=== PATIENT | female | born 1945 | race Caucasian/White ===

== ENCOUNTER → 2017-12-13 | Outpatient (REF) | payer MEDICARE, BC ==
[2017-12-14 16:00] LABS: IMMEDIATE SPIN CROSSMATCH 1 2
== END ==
LOC: M LAB REF 13:36
DX: C49.9 Malignant neoplasm of connective and soft tissue, unspecified (principal)
CPT/HCPCS: 86900

== ENCOUNTER 2017-12-14 12:49 | Outpatient (CLI) | payer MEDICARE, BC ==
[2017-12-14] MEDS: ACETAMINOPHEN TAB 650MG DOSE (2X325MG) PO (13:56)
[2017-12-14] MEDS: diphenhydrAMINE 25 MG CAP PO (13:56)
[2017-12-14] MEDS: SODIUM CHLORIDE 0.9% INJ 10 ML SYR IV (17:49)
== END 2017-12-14 18:15 | disposition home or self-care (01) ==
LOC: M INFU 12:49
DX: C49.9 Malignant neoplasm of connective and soft tissue, unspecified (principal); D64.9 Anemia, unspecified; I10 Essential (primary) hypertension; E11.9 Type 2 diabetes mellitus without complications; F32.9 Major depressive disorder, single episode, unspecified; M19.049 Primary osteoarthritis, unspecified hand; Z79.899 Other long term (current) drug therapy; Z88.8 Allergy status to other drugs, medicaments and biological substances; Z87.891 Personal history of nicotine dependence
CPT/HCPCS: 36430

== ENCOUNTER → 2018-01-10 | Outpatient (REF) | payer MEDICARE, BC ==
[2018-01-10 16:13] LABS: FREE T4 1.13 NG/DL (0.76-1.46)
== END ==
LOC: M LAB REF 14:48
DX: Z51.81 Encounter for therapeutic drug level monitoring (principal); Z79.899 Other long term (current) drug therapy
CPT/HCPCS: 84443

== ENCOUNTER → 2018-01-31 | Outpatient (REF) | payer MEDICARE, BC | LOC: M LAB REF 18:12 | DX: Z79.899 Other long term (current) drug therapy (principal) | CPT/HCPCS: 84443 ==

== ENCOUNTER → 2018-02-05 | Outpatient (REF) | payer MEDICARE, BC ==
[2018-02-05 14:12] LABS: INR 1.07; PROTHROMBIN TIME 14.1 SECONDS (12.4-14.5)
== END ==
LOC: M LAB REF 13:32
DX: Z01.812 Encounter for preprocedural laboratory examination (principal); Z79.01 Long term (current) use of anticoagulants
CPT/HCPCS: 85610

== ENCOUNTER → 2018-02-13 | Outpatient (CLI) | payer MEDICARE, BC ==
[~2018-02-13] MED LIST: LIDOCAINE 1% MDV 20ML VIAL As Ordered
== END ==
LOC: M RADPRO 12:36
DX: C77.0 Secondary and unspecified malignant neoplasm of lymph nodes of head, face and neck (principal); R59.0 Localized enlarged lymph nodes; Z79.82 Long term (current) use of aspirin; Z79.4 Long term (current) use of insulin
CPT/HCPCS: 38505

== ENCOUNTER → 2018-02-21 | Outpatient (REF) | payer MEDICARE, BC ==
[2018-02-22 14:53] LABS: IMMEDIATE SPIN CROSSMATCH 1 2
== END ==
LOC: M LAB REF 16:26
DX: D64.9 Anemia, unspecified (principal)
CPT/HCPCS: 86900

== ENCOUNTER 2018-02-22 10:10 | Outpatient (CLI) | payer MEDICARE, BC ==
[2018-02-22] MEDS: ACETAMINOPHEN TAB 650MG DOSE (2X325MG) PO (12:09)
[2018-02-22] MEDS: diphenhydrAMINE 25 MG CAP PO (12:10)
[2018-02-22] MEDS ORDERED: SODIUM CHLORIDE 0.9% INJ 10 ML SYR IV (17:15)
[2018-02-23] MEDS ORDERED: SODIUM CHLORIDE 0.9% INJ 10 ML SYR IV (09:00)
== END 2018-02-22 18:30 | disposition home or self-care (01) ==
LOC: M OPCLI5PR 10:10 → M MS5PR 10:16 → M OPCLI5PR 18:30
DX: D64.81 Anemia due to antineoplastic chemotherapy (principal); Z79.82 Long term (current) use of aspirin; Z79.4 Long term (current) use of insulin; Z79.899 Other long term (current) drug therapy
CPT/HCPCS: 36430

== ENCOUNTER → 2018-03-14 | Outpatient (REF) | payer MEDICARE, BC ==
[2018-03-14 19:00] LABS: FREE T4 1.28 NG/DL (0.76-1.46)
== END ==
LOC: M LAB REF 17:25
DX: C49.9 Malignant neoplasm of connective and soft tissue, unspecified (principal); C78.02 Secondary malignant neoplasm of left lung; C34.91 Malignant neoplasm of unspecified part of right bronchus or lung; Z79.899 Other long term (current) drug therapy
CPT/HCPCS: 84443

== ENCOUNTER → 2018-03-28 | Outpatient (REF) | payer MEDICARE, BC ==
[2018-03-28 18:57] LABS: FREE T4 1.23 NG/DL (0.76-1.46); IRON (FE) 29 UG/DL (50-170); PERCENT SATURATION 20.7 % (13.2-45.0); TOTAL IRON BINDING CAPACITY 140 UG/DL (250-450)
[2018-03-28 19:21] LABS: FERRITIN 3222 NG/ML (8-252)
[2018-03-28 19:24] LABS: SLIDE REVIEW Report; SOURCE PERIPHERAL SMEAR
[2018-03-29 17:32] LABS: IMMEDIATE SPIN CROSSMATCH 1 2
== END ==
LOC: M LAB REF 16:26
DX: Z51.81 Encounter for therapeutic drug level monitoring (principal); Z79.899 Other long term (current) drug therapy; C49.9 Malignant neoplasm of connective and soft tissue, unspecified; C78.02 Secondary malignant neoplasm of left lung; C34.91 Malignant neoplasm of unspecified part of right bronchus or lung
CPT/HCPCS: 83550

== ENCOUNTER 2018-03-29 13:01 | Outpatient (CLI) | payer MEDICARE, BC ==
[2018-03-29] MEDS: diphenhydrAMINE 25 MG CAP PO (14:37)
[2018-03-29] MEDS: ACETAMINOPHEN TAB 650MG DOSE (2X325MG) PO (14:37)
[2018-03-29] MEDS: SODIUM CHLORIDE 0.9% INJ 10 ML SYR IV (20:14)
[2018-03-30] MEDS ORDERED: SODIUM CHLORIDE 0.9% INJ 10 ML SYR IV (09:00)
== END 2018-03-29 20:30 | disposition home or self-care (01) ==
LOC: M OPCLI4PR 13:01 → M PED 13:05 → M OPCLI4PR 20:30
DX: D64.9 Anemia, unspecified (principal); Z79.4 Long term (current) use of insulin; Z79.899 Other long term (current) drug therapy; C49.9 Malignant neoplasm of connective and soft tissue, unspecified; C78.02 Secondary malignant neoplasm of left lung
CPT/HCPCS: 36430

== ENCOUNTER → 2018-04-18 | Outpatient (REF) | payer MEDICARE, BC ==
[2018-04-18 18:08] LABS: FREE T4 1.18 NG/DL (0.76-1.46)
== END ==
LOC: M LAB REF 16:55
DX: C49.9 Malignant neoplasm of connective and soft tissue, unspecified (principal); C78.02 Secondary malignant neoplasm of left lung; C34.91 Malignant neoplasm of unspecified part of right bronchus or lung; Z79.899 Other long term (current) drug therapy
CPT/HCPCS: 84443

== ENCOUNTER → 2018-05-09 | Outpatient (REF) | payer MEDICARE, BC ==
[2018-05-09 18:55] LABS: FREE T4 0.96 NG/DL (0.76-1.46)
== END ==
LOC: M LAB REF 16:49
DX: Z79.899 Other long term (current) drug therapy (principal); D64.9 Anemia, unspecified; C34.91 Malignant neoplasm of unspecified part of right bronchus or lung; C78.02 Secondary malignant neoplasm of left lung; C49.9 Malignant neoplasm of connective and soft tissue, unspecified
CPT/HCPCS: 84443